=== PATIENT | female | born 1950 | race Caucasian/White ===

== ENCOUNTER → 2016-03-20 | Outpatient (CLI) | payer OTHER ==
[~2016-03-20] MED LIST: ALPR0.25 PO; ASPCH81X PO; ATEN50TA8 PO; CALC-354 PO; CHOL100027 PO; CRFL PO; MULT-916 PO; NAPR-1169 PO; NXM/40 PO; PRAV40TA2 PO; RANI300T PO; SIME80CH PO; VITAMIN B12 PO; VITAMIN E PO
[2016-03-20 17:20] LABS: URINE APPEARANCE CLEAR (CLEAR); URINE BILIRUBIN NEG (NEG); URINE COLOR YELLOW; URINE EPITHELIAL CELL AUTO 20-30 /lpf (0-5); URINE NITRITE POS (NEG); URINE PH 5.5 (4.5-7.5); URINE SPECIFIC GRAVITY 1.021 (1.000-1.030); UROBILINOGEN NEG (NEG)
[2016-03-20 17:22] LABS: MANUAL MICROSCOPIC REQUIRED? NO; REVIEW REQ? NO
== END | disposition home or self-care (01) ==
LOC: C.LABPVFM 15:51
DX: N39.0 Urinary tract infection, site not specified (principal)

== ENCOUNTER → 2016-04-05 | Outpatient (CLI) | payer OTHER ==
--- NOTE | 2016-04-05 16:30 | MAMMOGRAPHY REPORT ---
BILATERAL DIGITAL SCREENING MAMMOGRAM TOMOSYNTHESIS WITH CAD: 04/05/2016 TECHNIQUE: Breast tomosynthesis in addition to standard 2D mammography was performed. Current study was also evaluated with a Computer Aided Detection (CAD) system. COMPARISON: Comparison is made to exams dated: 04/03/2015 mammogram, 03/31/2014 mammogram, 05/06/2013 localization, 03/12/2013 mammogram, 02/24/2013 mammogram - [facility], and 07/18/2008 . BREAST COMPOSITION: There are scattered areas of fibroglandular density in both breasts. FINDINGS: There are possible faint grouped calcifications seen within the right medial breast at ap proximately 3:00, for which spot magnification views are recommended for further evaluation. The remainder of both breasts are stable compared to prior exams, without suspicious masses, calcifi cations, or areas of architectural distortion noted. There are stable post surgical changes in the right upper outer quadrant from prior lumpectomy, including coarse benign dystrophic calcifications adjacent to the lumpectomy bed. Small benign-appearing circumscribed mass in the right 9:00 breast posteriorly is stable and likely represents an intramammary lymph node. IMPRESSION: ACR BI-RADS CATEGORY 0: INCOMPLETE EVALUATION: NEED ADDITIONAL IMAGING EVALUATION Possible grouped calcifications in the right 3:00 breast, for which additional imaging evaluation is recommended. The patient will be called to schedule an appointment. Approximately 10% of breast cancers are not detected with mammography. A negative mammographic repor t should not delay biopsy if a clinically suggestive mass is present. Donna Duke M.D. ah/:04/05/2016 15:59:18 Seam Checker: Maryjane HAGEN)(Dave), [facility] letter sent: Addl Imaging 0 BI-RADS Code: ACR BI-RADS Category 0: Incomplete Evaluation: Need Additional Imaging Evaluation
== END | disposition home or self-care (01) ==
LOC: C.MAMM 13:25
PROVIDERS: ATTEND Obstetrics & Gynecology
DX: R92.2 Inconclusive mammogram (principal); Z12.31 Encounter for screening mammogram for malignant neoplasm of breast

== ENCOUNTER → 2016-05-01 | Outpatient (CLI) | payer OTHER ==
--- NOTE | 2016-05-01 15:34 | MAMMOGRAPHY REPORT ---
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 TECHNIQUE: Spot magnification right CC and ML views were obtained. COMPARISON: Comparison is made to exams dated: 04/05/2016 mammogram, 04/03/2015 mammogram, 03/31/2014 mammogram - [facility], 07/16/2007, 07/18/2008, and 02/24/2013 mammogram - [facility]. BREAST COMPOSITION: There are scattered areas of fibroglandular density in the right breast. FINDINGS: There is a 20 x 12 by approximately 15 mm cluster of very faint amorphous microcalcificat ions in the lower inner middle one third of the right breast. The microcalcifications are fainter t wright the patient's biopsy proven DCIS, but the new microcalcifications remains suspicious. Definitiv e characterization with a stereotactic guided biopsy is recommended. No other obvious microcalcific ations, new mass or unexpected architectural distortion are identified in the visualized right breas t. IMPRESSION: ACR BI-RADS CATEGORY 4B: INTERMEDIATE SUSPICION FOR MALIGNANCY 1. There is a new faint cluster of amorphous microcalcifications in the lower inner middle one thir d of the right breast, measuring up to 2 cm in maximum dimension. This is suspicious for DCIS, give n the patient's history of right breast DCIS status post breast conservation therapy, and definitive characterization with a stereotactic guided biopsy is recommended. These results and recommendations were discussed with the patient at the time of the exam. She tent atively scheduled the biopsy prior to leaving our department. Approximately 10% of breast cancers are not detected with mammography. A negative mammographic repor t should not delay biopsy if a clinically suggestive mass is present. Alayna Pierson M.D. ay/:05/01/2016 14:27:06 Management Information Systems Director: Sandie GILLESPIE(Thelma)(Dave), [facility] letter sent: Abnormal 4/5 BI-RADS Code: ACR BI-RADS Category 4B: Intermediate Suspicion For Malignancy
== END | disposition home or self-care (01) ==
LOC: C.MAMM 13:40
PROVIDERS: ATTEND Obstetrics & Gynecology
DX: R92.0 Mammographic microcalcification found on diagnostic imaging of breast (principal); Z86.000 Personal history of in-situ neoplasm of breast

== ENCOUNTER → 2016-05-10 | Outpatient (CLI) | payer OTHER ==
--- NOTE | 2016-05-10 13:18 | Discharge Instructions ---
Discharge Instructions Procedure Procedure Date: May 10, 2016. Reason for visit: Right Calcifications. Discharge Discharge Date: May 10, 2016. Discharge Diagnosis: status post breast biopsy Instructions Activity Recommendations: Additional Limitations (see below) Return to School/Work: no limitations Recommended Home Diet: No Limitations Provider Instructions: ACTIVITY RECOMMENDATIONS: * No lifting, pushing, pulling or exercising the affected side for three days. RETURN TO SCHOOL/WORK: * You may return to work/school after the procedure, but do not perform any strenuous activities for 24 to 48 hours. MEDICATIONS: * Tylenol (two 325 mg) every four to six hours if needed for mild pain (if not allergic to Tylenol). DIET: * Resume previous diet. SPECIAL CARE INSTRUCTIONS: * Keep biopsy site dry for 24 hours. May shower after 24 hours, but do not soak (bathe) incision. * May remove Tegaderm (plastic patch) tomorrow AFTER showering. * Leave the steri-strips on for one week. Allow the steri-strips to fall off by themselves. If not off after one week, you may remove them. You may place a Bandaid crosswise over the strips, if desired. * Apply ice 10 minutes on and 10 minutes off as needed. * Wear a bra at bedtime to sleep more comfortably for 2-3 days. * Your referring physician should have the results after approximately 5 to 7 business days. * Call for unusual bleeding, fever, drainage, etc or if you have any questions call during normal business hours or after hours call Dr Duke, [phone]. FOLLOW UP VISIT: Follow-up with Referring Physician as scheduled. Allergies Coded Allergies: Alcohol (Verified Allergy, Severe, AIRWAY SWELLING, 11/12/15) Doris Freeman Recommendations: Call your doctor if: * Temperature above 101 degrees * Pain not relieved by pain medicine ordered * There is increased drainage or redness from any incision * You have any unanswered questions or concerns. Your Doctors Instructions noted above were prepared by provider Donna Duke. Patient Signature Section: Patient Instructions Signature Page Giana Harman Patient (or Guardian) Signature/Date: I have read and understand the instructions given to me by my caregivers. Caregiver/RN/Doctor Signature/Date: The above-named patient and/or guardian has received patient instructions on this date. + Original Patient Signature Page (only) stays with chart. Please make copy for patient.
--- NOTE | 2016-05-13 13:48 | MAMMOGRAPHY REPORT ---
STEREOTACTIC GUIDED BIOPSY RIGHT BREAST: 05/10/2016 CLINICAL HISTORY: Indeterminate calcifications in the right lower inner quadrant. PATIENT CONSENT: The procedure, risks, benefits, and alternatives of stereotactic biopsy with clip p lacement were discussed with the patient, and verbal and written consent was obtained. A timeout wa s performed immediately prior to the procedure. PROCEDURE DESCRIPTION: With stereotactic guidance, aseptic technique, and lidocaine as a local anest hetic (1% lidocaine to anesthetize the skin and 1% lidocaine with epinephrine to anesthetize the shara per tissues), the area of concern was sampled multiple times with a 9-gauge vacuum-assisted biopsy n eedle (Letyano Eviva). The path of approach was caudocranial. The specimen radiograph demonstrates c alcifications to be present in the samples. The samples containing calcifications (labeled A) were from the samples without calcifications (labeled B). A metallic marker clip was placed at the biopsy site. This was confirmed on postprocedure mammograms. Direct pressure was applied at t he biopsy site and hemostasis was readily achieved. The patient tolerated the procedure without com plication. She was given wound care instructions. COMPARISON: Comparison is made to exams dated: 05/01/2016 mammogram, 04/05/2016 mammogram, 03/31/2014 mammogram, 04/03/2015 mammogram, 03/12/2013 mammogram, and 02/24/2013 mammogram - [facility]. IMPRESSION: STEREOTACTIC GUIDED BIOPSY Stereotactic biopsy of indeterminate calcifications in the right lower inner quadrant, with clip liz cement. The patient will receive pathology results from the referring provider. Donna Duke M.D. ah/:05/10/2016 13:29:55 Attending Technologist: Raúl Kidd RT(R)(M), [facility] Hydrometer Calibrator: Mariangel Sosa RT(R)(M), [facility]
--- NOTE | 2016-05-13 13:48 | MAMMOGRAPHY REPORT ---
UNILATERAL RIGHT DIGITAL DIAGNOSTIC MAMMOGRAM: 05/10/2016 CLINICAL HISTORY: Status post stereotactic biopsy of right lower inner quadrant calcifications. TECHNIQUE: Postprocedural right CC and ML views were obtained. COMPARISON: Comparison is made to exams dated: 05/01/2016 mammogram, 04/03/2015 mammogram, 03/31/2014 mammogram, 04/05/2016 mammogram, 03/12/2013 mammogram, and 02/24/2013 mammogram - [facility]. BREAST COMPOSITION: There are scattered areas of fibroglandular density in the right breast. FINDINGS: A new biopsy marker clip is seen at the site of the biopsied calcifications in the right lower inner quadrant. No significant postbiopsy hematoma is seen. IMPRESSION: POST PROCEDURE IMAGING FOR MARKER PLACEMENT New biopsy marker clip status post stereotactic biopsy of right lower inner quadrant calcifications. Pathology results are pending. Approximately 10% of breast cancers are not detected with mammography. A negative mammographic repor t should not delay biopsy if a clinically suggestive mass is present. Donna Duke M.D. ah/:05/10/2016 13:31:09 Attending Technologist: Raúl Kidd RT(R)(M), [facility] Lathe Setup Operator: Mariangel Sosa RT(R)(M), [facility] BI-RADS Code: Post Procedure Imaging For Marker Placement
== END | disposition home or self-care (01) ==
LOC: C.MAMM 12:25
PROVIDERS: ATTEND Obstetrics & Gynecology
DX: R92.1 Mammographic calcification found on diagnostic imaging of breast (principal)

== ENCOUNTER → 2016-06-03 | Outpatient (CLI) | payer OTHER | END | disposition home or self-care (01) | LOC: C.PAPS 09:33 | PROVIDERS: ATTEND Family Medicine | DX: Z01.419 Encounter for gynecological examination (general) (routine) without abnormal findings (principal); Z12.4 Encounter for screening for malignant neoplasm of cervix; N95.8 Other specified menopausal and perimenopausal disorders ==

== ENCOUNTER → 2016-06-13 | Outpatient (CLI) | payer OTHER ==
[2016-06-13 14:09] VITALS: BP 137/76; PULSE 77; TEMP 36.8; O2SAT 97
--- NOTE | 2016-06-13 18:34 | Radiation Oncology Follow-Up ---
Radiation Oncology Follow-Up Date of Visit Jun 13, 2016. Reason For Visit Ms. Ivory returns for her annual follow-up visit. She was last seen on 2015. Radiation Completion Date 07/21/03 History of Present Illness Ms. Ivory is a 64-year-old female who underwent bilateral digital screening mammograms. Her most recent screening mammogram was on 02/24/2013. This was compared to prior studies in 2008 and 2007. This lady study showed an asymmetry with calcifications in the right breast at the 11:00 anterior depth. Also noted was a nodule in the right breast at the 8:00 posterior depth position. Possible architectural distortion was appreciated in the left breast anterior depth superior region seen on the mediolateral oblique view only. Additional spot views were recommended with compression. These additional studies were performed on . These revealed clustered pleomorphic calcifications in the right breast at the 12:00 anterior depth. Also noted was a 9 mm oval mass with circumscribed margins in the right breast at the 6:00 posterior depth. A targeted ultrasound demonstrated a probable 9 mm cyst correlating with the mammographic findings. The architectural distortion in the left breast seen on mediolateral oblique view only was no longer seen. No ultrasound abnormality was appreciated. This study was given a BI-RAD category 4C of moderate suspicion for malignancy. An ultrasoundguided diagnostic aspiration was recommended along with stereotactic biopsy. On 03/23/2013 patient underwent an ultrasound-guided aspiration of the right breast with post digital mammographic and ultrasound imaging. The vacuum-assisted stereotactic core needle biopsy confirmed a highgrade ductal carcinoma in situ with associated microcalcifications present. The architecture was primarily solid with comedonecrosis present. Estrogen receptors were positive with 100%, strong intensity and the progesterone receptors were positive with 90% moderate intensity. The ductal carcinoma in situ measured up to 0.5 cm in greatest dimension on the glass slide. Case: [id number]. Patient was seen by Dr. Lorrie Bateman who felt the patient would be a good candidate for conservative therapy and recommended a lumpectomy. She therefore proceeded to schedule the patient for a partial mastectomy which was performed on 05/07/2013. 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 The gross area of DCIS measured 3.0 x 1.5 x 0.9 cm. 9 sections were taken from this area revealing extensive DCIS. There was evidence of comedo-type necrosis present. Microcalcifications were present. On the main lumpectomy excision no DCIS is noted at any of the specimens margin. It does to approach to within 0.2 cm of an anterior blue inked margin. Additional margin was taken and was clear. At the 6: 00 margin DCIS was noted at the final margin however. Case: [id number]. Dr. Bateman is recommended rexcision of the positive margin and proceeded with this procedure on June [id number]. The new 6:00 right breast margin showed no residual ductal carcinoma in situ seen. Additional tissue from the inferior excision revealed 2 tiny foci of residual DCIS away from inked new resection margin. Accession #: [id number]. The patient will be scheduled to see medical oncology for discussion of the role of adjuvant hormonal therapy and we were asked to see the patient in referral to discuss the role of adjuvant radiation. She underwent CT simulation and was found to be a good candidate for accelerated partial breast treatment. She completed radiation therapy 07/20/2013 received 3850 cGy utilizing accelerated partial breast treatment She did well over this past year. She denied any changes to her breast. She had noted no masses or tenderness. There have been no nipple changes or change of the axilla. She was up-to-date on mammography. She had previously seen Dr. Chris and discussed tamoxifen therapy. She was fearful of the potential side effects. She declined tamoxifen therapy. Interim History The patient underwent bilateral digital mammograms on 04/05/2016. This was compared to prior examinations. There was a possible faint grouped calcifications seen within the right medial breast at approximately 3 o'clock position. Spot magnification views were recommended for further evaluation. The remainder of both breasts were stable compared to prior examinations without suspicious masses, calcifications or areas of architectural distortion noted. There were stable postsurgical changes in the right upper outer quadrant from prior lumpectomy and accelerated partial breast irradiation. This included coarse benign dystrophic calcifications adjacent to the lumpectomy bed. A small benign-appearing circumscribed mass was seen in the right breast at the 9 o'clock position posteriorly and was stable likely representing an intramammary lymph node. Patient had a lateral right digital diagnostic magnification with a right CC and ML views. This showed a 2.0 x 1.2 x 1.5 cm cluster of very faint amorphous microcalcifications in the lower inner middle one third of the right breast. These microcalcifications were fainter that the patient's biopsy-proven DCIS. However the microcalcifications remain suspicious. Definitive characterization with stereotactic guided biopsy was recommended. The patient agreed and on 05/10/2016 she underwent a stereotactic guided biopsy of the right breast. Samples were taken both from the area of calcifications and the area away from the calcifications. Both biopsies were negative for DCIS and invasive carcinoma. Case: [id number]. Patient otherwise is doing extremely well. She denies any significant breast tenderness or soreness. She denied any arm swelling or lymphedema. Allergies Coded Allergies: Alcohol (Verified Allergy, Severe, AIRWAY SWELLING, 11/12/15) Home Medications Scheduled Alprazolam (Xanax), 0.25 MG PO BID Aspirin (Aspirin Chewable), 81 MG PO QAM Atenolol (Tenormin), 50 MG PO QAM Cholecalciferol (Vitamin D 1000 Unit), 1,000 INTER.UNIT PO DAILY Esomeprazole Magnesium (Nexium), 40 MG PO QAM Multiple Vitamins W/ Minerals (Multivitamin Adults 50+), 1 TAB PO QAM Pravastatin Sodium (Pravastatin Sodium), 40 MG PO HS Ranitidine Hcl (Zantac), 300 MG PO HS Simethicone (Gas-X), 1 TAB PO QAM Sucralfate (Carafate), 10 ML PO HS [Vitamin B12], 1 TAB PO QAM [Vitamin E], 1 TAB PO QAM Scheduled PRN Naproxen (Naprosyn), 500 MG PO BID PRN for Pain Review of Systems Gastrointestinal: Symptoms: WNL Oral: Symptoms: No Problems Respiratory: Symptoms: Dry Cough Urinary: Symptoms: WNL Breast: Right Upper Arm Measurement: 37.5 Right Mid Arm Measurement: 30.4 Right Wrist Measurement: 17.7 Left Upper Arm Measurement: 38.0 Left Mid Arm Measurement: 30.5 Left Wrist Measurement: 17.2 Arm Dominence: Right Patient Cosmetic Evaluation: Good Staff Cosmetic Evalaluation: Good Physical Exam Vital Signs Date Time Temp Pulse Resp B/P Pulse Ox O2 Delivery O2 Flow Rate FiO2 06/13/16 14:09 36.8 77 28 137/76 97 Pain: Pain Onset: 2 months Pain Duration: intermet Patient Pain Scale: 0 - 10 Initial Pain Intensity: 3.0 Pain Description: Aching General Appearance: WD/WN, no apparent distress ENT: pharynx normal Neck: supple, no adenopathy Respiratory/Chest: chest non-tender, lungs clear, normal breath sounds Breast: Examination of the left breast reveals no palpable masses no skin changes and no tenderness. No left axillary adenopathy was appreciated. Examination of the right breast reveals a healed incision in the right upper outer quadrant with some mild induration. There is a remain some minimal skin edema. There is no significant breast tenderness no significant operable masses and no right axillary adenopathy. The site of the recent biopsy is healing well. Cardiovascular: regular rate, rhythm, no murmur Abdomen: non tender, soft Extremities: normal range of motion Neurologic/Psychiatric: no motor/sensory deficits, alert, normal mood/affect, oriented x 3 Laboratory Studies Test 03/20/16 16:00 Urine Color YELLOW Urine Appearance CLEAR (CLEAR) Urine pH 5.5 (4.5-7.5) Urine Specific [place] 1.021 (1.000-1.030) Urine Protein NEG (NEG) Urine Glucose (UA) NEG (NEG) Urine Ketones TRACE (NEG) Urine Occult Blood 1+ (NEG) Urine Nitrite POS (NEG) Urine Bilirubin NEG (NEG) Urine Urobilinogen NEG (NEG) Urine Leukocyte Esterase SMALL (NEG) Urine WBC (Auto) >30 /hpf (0-5) Urine RBC (Auto) 5-10 /hpf (0-4) Urine Hyaline Casts (Auto) 5-10 /lpf (0-5) Urine Epithelial Cells (Auto) 20-30 /lpf (0-5) Urine Bacteria (Auto) 4+ (NEG) Additional Studies [facility] SURGICAL PATHOLOGY REPORT Name GIANA IVORY Case: [id number] SURGICAL PATHOLOGY REPORT Page 2 of 2 [facility] [place] [address] Tristian Felton M.D. marriage performer PATHOLOGY REPORT SURGICAL PATHOLOGY REPORT Page 1 of 1 CLINICAL HISTORY Right lower inner quadrant breast calcifications, rule out DCIS, fibrocystic change. GROSS DESCRIPTION A. SAMPLES WITH CALCIFICATIONS The specimen is received in a container labeled as right calcs with patient name Giana Ivory. The specimen consists of multiple irregular and elongated fragments of yellow, rios and reddish, soft to rubbery tissue, in all approximately 2 cc. The specimen is entirely submitted in a single cassette as A for levels. B. SAMPLES WITHOUT CALCIFICATIONS The specimen is received in a container labeled as right breast with patient name Giana Ivory. The specimen consists of multiple irregular and elongated fragments of yellow and rios, soft to rubbery tissue, in all approximately 2 cc. The specimen is entirely submitted in a single cassette as B for levels. The specimens are fixed in formalin for a total of 55 hours. SH/pi FINAL DIAGNOSIS A. BREAST, RIGHT LOWER INNER QUADRANT WITH CALCIFICATION, STEREOTACTIC-GUIDED BIOPSIES: 1. FIBROCYSTIC CHANGE WITH ASSOCIATED MICROCALCIFICATION. 2. NEGATIVE FOR DCIS AND INVASIVE CARCINOMA. B. BREAST, LOWER INNER QUADRANT WITHOUT CALCIFICATIONS, STEREOTACTIC-GUIDED BIOPSIES: 1. FIBROCYSTIC CHANGE. 2. NEGATIVE FOR DCIS AND INVASIVE CARCINOMA. Assessment & Plan This patient continues to do well. She will continue to be followed by her referring physicians. We would like to see her in follow-up in one year's time. She is scheduled for her annual mammogram. Total Time In Follow-Up I spent 15 minutes in examination and discussion with this patient and 10 minutes reviewing her chart and preparation of this document. Copy To Marquez Su M.D.; Tanika Roach M.D.(HIDE INSPECTOR AND SORTER/OB)
== END | disposition home or self-care (01) ==
LOC: C.ONC 13:55
PROVIDERS: ATTEND Physician Assistant Medical
DX: Z08 Encounter for follow-up examination after completed treatment for malignant neoplasm (principal); Z92.3 Personal history of irradiation; Z85.3 Personal history of malignant neoplasm of breast

== ENCOUNTER → 2016-06-15 | Outpatient (CLI) | payer OTHER ==
[~2016-06-15] MED LIST changes: -CALC-354 PO
[2016-06-15 13:14] LABS: BLOOD UREA NITROGEN 12 mg/dl (7-18); BUN/CREATININE RATIO 16.3 (10-20); CALCIUM 9.1 mg/dl (8.5-10.1); CARBON DIOXIDE 30 mmol/L (21-32); CHLORIDE 104 mmol/L (98-107); CREATININE 0.76 mg/dl (0.60-1.20); GLUCOSE 103 mg/dl (70-99); SODIUM 139 mmol/L (136-145)
[2016-06-15 13:17] LABS: CHOLESTEROL 176 mg/dl (0-200); CHOLESTEROL/HDL RATIO 3.4; HDL CHOLESTEROL 52 mg/dl; LDL CHOLESTEROL CALCULATED 85 mg/dl; TRIGLYCERIDES 196 mg/dl (0-150); VERY LOW DENSITY LIPOPROT CALC 39 mg/dl
== END | disposition home or self-care (01) ==
LOC: C.LABPVFM 09:03
PROVIDERS: ATTEND Family Medicine
DX: Z11.59 Encounter for screening for other viral diseases (principal); Z13.220 Encounter for screening for lipoid disorders; Z13.1 Encounter for screening for diabetes mellitus

== ENCOUNTER → 2016-09-14 | Outpatient (CLI) | payer OTHER | END | disposition home or self-care (01) | LOC: C.LABPVFM 15:04 | PROVIDERS: ATTEND Family Medicine | DX: R39.9 Unspecified symptoms and signs involving the genitourinary system (principal) ==

== ENCOUNTER → 2016-12-24 | Outpatient (CLI) | payer OTHER ==
[2016-12-24 13:34] LABS: ESTIMATED AVERAGE GLUCOSE 120 mg/dl; HA1C FLAG Normal (Normal)
[2016-12-24 14:03] LABS: ALB/GLOB RATIO 0.8 (0.9-2); ALKALINE PHOSPHATASE 60 U/L (45-117); ALT/SGPT 34 U/L (12-78); AST/SGOT 30 U/L (15-37); BLOOD UREA NITROGEN 17 mg/dl (7-18); BUN/CREATININE RATIO 20.6 (10-20); CALCIUM 9.1 mg/dl (8.5-10.1); CARBON DIOXIDE 30 mmol/L (21-32); CHLORIDE 104 mmol/L (98-107); CHOLESTEROL 161 mg/dl (0-200); CHOLESTEROL/HDL RATIO 3.7; GLUCOSE 103 mg/dl (70-99); HDL CHOLESTEROL 43 mg/dl; LDL CHOLESTEROL CALCULATED 74 mg/dl; POTASSIUM 3.9 mmol/L (3.5-5.1); SODIUM 139 mmol/L (136-145); TRIGLYCERIDES 218 mg/dl (0-150); VERY LOW DENSITY LIPOPROT CALC 44 mg/dl
== END | disposition home or self-care (01) ==
LOC: C.LABPVFM 08:10
PROVIDERS: ATTEND Family Medicine
DX: R73.01 Impaired fasting glucose (principal); I10 Essential (primary) hypertension; K21.0 Gastro-esophageal reflux disease with esophagitis; E78.5 Hyperlipidemia, unspecified

== ENCOUNTER → 2017-02-04 | Outpatient (CLI) | payer OTHER | END | disposition home or self-care (01) | LOC: C.LABPVFM 12:51 | PROVIDERS: ATTEND Family Medicine | DX: J02.9 Acute pharyngitis, unspecified (principal) ==

== ENCOUNTER → 2017-04-07 | Outpatient (CLI) | payer OTHER ==
--- NOTE | 2017-04-08 14:40 | MAMMOGRAPHY REPORT ---
BILATERAL DIGITAL SCREENING MAMMOGRAM TOMOSYNTHESIS WITH CAD: 04/07/2017 CLINICAL HISTORY: Asymptomatic. Personal history of breast cancer. TECHNIQUE: Breast tomosynthesis in addition to standard 2D mammography was performed. Current study was also evaluated with a Computer Aided Detection (CAD) system. COMPARISON: Comparison is made to exams dated: 05/10/2016 mammogram, 04/05/2016 mammogram, 04/03/2015 ma mmogram, 03/31/2014 mammogram, 05/06/2013 specimen - [facility], and 07/18/2008. BREAST COMPOSITION: There are scattered areas of fibroglandular density in both breasts. FINDINGS: No suspicious masses, calcifications, or areas of architectural distortion are noted in ei ther breast. There has been no significant interval change compared to prior exams. There are stable postsurgical changes in the right upper outer quadrant from prior lumpectomy, including stable densi ty and architectural distortion at the surgical bed. Coarse dystrophic calcifications in the region of the surgical bed are again noted. A biopsy marker clip is again noted within the right lower inne r quadrant from prior benign stereotactic biopsy. Small nodular asymmetry in the right medial marble installation helper ior breast on the CC view is stable. Fluctuating circumscribed benign-appearing 11 mm mass within th e right 9:00 posterior breast appears similar to the 2013 exam. IMPRESSION: ACR BI-RADS CATEGORY 2: BENIGN There is no mammographic evidence of malignancy. A 1 year screening mammogram is recommended. The pa tient will receive written notification of the results. Approximately 10% of breast cancers are not detected with mammography. A negative mammographic report should not delay biopsy if a clinically suggestive mass is present. Donna Duke M.D. ah/:04/07/2017 16:12:11 Stain Dipper: Maryjane GILLESPIE(Thelma)(M), [facility] letter sent: Normal 03/11 BI-RADS Code: ACR BI-RADS Category 2: Benign
== END | disposition home or self-care (01) ==
LOC: C.MAMM 13:31
PROVIDERS: ATTEND Obstetrics & Gynecology
DX: Z12.31 Encounter for screening mammogram for malignant neoplasm of breast (principal)

== ENCOUNTER → 2017-06-12 | Outpatient (CLI) | payer OTHER ==
[2016-06-13 14:09] VITALS: BP 137/76; PULSE 77
[~2017-06-12] MED LIST changes: +[UNRECOGNIZED DRUG - CODE] PO
[2017-06-12 13:09] VITALS: BP 142/83; PULSE 84; TEMP 36.9; O2SAT 97
--- NOTE | 2017-06-12 14:10 | Radiation Oncology Follow-Up ---
Radiation Oncology Follow-Up Date of Visit Jun 12, 2017. Reason For Visit Annual follow-up Radiation Completion Date APBI 07/20/13 Diagnosis (1) Intraductal carcinoma in situ of right breast Status: Resolved Onset Date: 03/23/2013 Stage: 0 Permanent Comment: Abnormal right breast mammogram Status post ultrasound-guided aspiration 03/23/2013 revealing high-grade DCIS Estrogen receptor positive and progesterone receptor positive Reexcision due to positive margin 05/31/2013. No residual DCIS Status post completion of radiation therapy utilizing accelerated partial breast treatment completed 07/20/2013 received 3850 cGy Patient declined tamoxifen therapy Last Edited By: Niurka Espinoza on May 17, 2015 13:42 History of Present Illness Ms. Ivory underwent bilateral digital screening mammograms. Her most recent screening mammogram was on 02/24/2013. This was compared to prior studies in 2008 and 2007. This lady study showed an asymmetry with calcifications in the right breast at the 11:00 anterior depth. Also noted was a nodule in the right breast at the 8:00 posterior depth position. Possible architectural distortion was appreciated in the left breast anterior depth superior region seen on the mediolateral oblique view only. Additional spot views were recommended with compression. These additional studies were performed on . These revealed clustered pleomorphic calcifications in the right breast at the 12:00 anterior depth. Also noted was a 9 mm oval mass with circumscribed margins in the right breast at the 6:00 posterior depth. A targeted ultrasound demonstrated a probable 9 mm cyst correlating with the mammographic findings. The architectural distortion in the left breast seen on mediolateral oblique view only was no longer seen. No ultrasound abnormality was appreciated. This study was given a BI-RAD category 4C of moderate suspicion for malignancy. An ultrasoundguided diagnostic aspiration was recommended along with stereotactic biopsy. On 03/23/2013 patient underwent an ultrasound-guided aspiration of the right breast with post digital mammographic and ultrasound imaging. The vacuum-assisted stereotactic core needle biopsy confirmed a highgrade ductal carcinoma in situ with associated microcalcifications present. The architecture was primarily solid with comedonecrosis present. Estrogen receptors were positive with 100%, strong intensity and the progesterone receptors were positive with 90% moderate intensity. The ductal carcinoma in situ measured up to 0.5 cm in greatest dimension on the glass slide. Case: [id number]. Patient was seen by Dr. Lorrie Bateman who felt the patient would be a good candidate for conservative therapy and recommended a lumpectomy. She therefore proceeded to schedule the patient for a partial mastectomy which was performed on 05/07/2013. 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 The gross area of DCIS measured 3.0 x 1.5 x 0.9 cm. 9 sections were taken from this area revealing extensive DCIS. There was evidence of comedo-type necrosis present. Microcalcifications were present. On the main lumpectomy excision no DCIS is noted at any of the specimens margin. It does to approach to within 0.2 cm of an anterior blue inked margin. Additional margin was taken and was clear. At the 6: 00 margin DCIS was noted at the final margin however. Case: [id number]. Dr. Bateman is recommended rexcision of the positive margin and proceeded with this procedure on June [id number]. The new 6:00 right breast margin showed no residual ductal carcinoma in situ seen. Additional tissue from the inferior excision revealed 2 tiny foci of residual DCIS away from inked new resection margin. Accession #: [id number]. The patient will be scheduled to see medical oncology for discussion of the role of adjuvant hormonal therapy and we were asked to see the patient in referral to discuss the role of adjuvant radiation. She underwent CT simulation and was found to be a good candidate for accelerated partial breast treatment. She completed radiation therapy 07/20/2013 received 3850 cGy utilizing accelerated partial breast treatment She did well over this past year. She denied any changes to her breast. She had noted no masses or tenderness. There have been no nipple changes or change of the axilla. She was up-to-date on mammography. She had previously seen Dr. Chris and discussed tamoxifen therapy. She was fearful of the potential side effects. She declined tamoxifen therapy. The patient underwent bilateral digital mammograms on 04/05/2016. This was compared to prior examinations. There was a possible faint grouped calcifications seen within the right medial breast at approximately 3 o'clock position. Spot magnification views were recommended for further evaluation. The remainder of both breasts were stable compared to prior examinations without suspicious masses, calcifications or areas of architectural distortion noted. There were stable postsurgical changes in the right upper outer quadrant from prior lumpectomy and accelerated partial breast irradiation. This included coarse benign dystrophic calcifications adjacent to the lumpectomy bed. A small benign-appearing circumscribed mass was seen in the right breast at the 9 o'clock position posteriorly and was stable likely representing an intramammary lymph node. Patient had a lateral right digital diagnostic magnification with a right CC and ML views. This showed a 2.0 x 1.2 x 1.5 cm cluster of very faint amorphous microcalcifications in the lower inner middle one third of the right breast. These microcalcifications were fainter that the patient's biopsy-proven DCIS. However the microcalcifications remain suspicious. Definitive characterization with stereotactic guided biopsy was recommended. The patient agreed and on 05/10/2016 she underwent a stereotactic guided biopsy of the right breast. Samples were taken both from the area of calcifications and the area away from the calcifications. Both biopsies were negative for DCIS and invasive carcinoma. Case: [id number]. Interim History She has been doing well over this past year. She denies any changes to her breast. She has noted no masses or tenderness and no change of the axilla. She is up-to-date on mammography. She has continued her regular follow-up with her primary care provider and battery test engineer. Allergies Coded Allergies: Alcohol (Verified Allergy, Severe, AIRWAY SWELLING, 11/12/15) Home Medications Scheduled Alprazolam (Xanax), 0.25 MG PO BID Aspirin (Aspirin Chewable), 81 MG PO QAM Atenolol (Tenormin), 50 MG PO QAM Cholecalciferol (Vitamin D 1000 Unit), 1,000 INTER.UNIT PO DAILY Coenzyme Q10 (Ubidecarenone) (Coq10 Gummies Adult), 100 MG PO DAILY Esomeprazole Magnesium (Nexium), 40 MG PO QAM Multiple Vitamins W/ Minerals (Multivitamin Adults 50+), 1 TAB PO QAM Pravastatin Sodium (Pravastatin Sodium), 40 MG PO HS Ranitidine Hcl (Zantac), 300 MG PO HS Sucralfate (Carafate), 10 ML PO HS [Vitamin B12], 1 TAB PO QAM [Vitamin E], 1 TAB PO QAM Scheduled PRN Naproxen (Naprosyn), 500 MG PO BID PRN for Pain Review of Systems Gastrointestinal: Symptoms: WNL Oral: Symptoms: No Problems Respiratory: Symptoms: WNL Urinary: Symptoms: WNL Skin: Symptoms: No Problems Breast: Right Upper Arm Measurement: 40.0 Right Mid Arm Measurement: 30.5 Right Wrist Measurement: 18.0 Left Upper Arm Measurement: 40.5 Left Mid Arm Measurement: 31.5 Left Wrist Measurement: 19.0 Arm Dominence: Right Patient Cosmetic Evaluation: Good Staff Cosmetic Evalaluation: Good Physical Exam Vital Signs Date Time Temp Pulse Resp B/P (MAP) Pulse Ox O2 Delivery O2 Flow Rate FiO2 06/12/17 13:09 36.9 84 16 142/83 97 Fatigue: None General Appearance: no apparent distress Eyes: normal inspection, EOMI ENT: normal ENT inspection, hearing grossly normal Neck: no adenopathy, thyroid normal Respiratory/Chest: lungs clear, no respiratory distress, no accessory muscle use Breast: Breast examination reveals well-healed incision of the right breast. There are no masses or tenderness and no axillary adenopathy. She has no skin retractions or nipple changes. She has some mild fibrous changes in the area of her incision. Using the Jackson score cosmesis she has a good outcome. The left breast showed no masses or tenderness and no axillary adenopathy. Cardiovascular: regular rate, rhythm, no gallop, no murmur Extremities: no pedal edema Neurologic/Psychiatric: no motor/sensory deficits, alert, normal mood/affect Skin: warm/dry Pain Management Patient Reports Pain: Yes Pain Location: Patient Preferred Pain Scale: 0 - 10 Initial Pain Intensity: 0.0 Pain Management Plan She denies pain therefore requires no pain management. Laboratory Laboratory Results: not applicable Pathology Pathology Results: not applicable Imaging Imaging Studies: were reviewed, and pertinent findings noted below Imaging Comments Patient: JONO IVORY [facility] Rec: [id number] Address1: [address] [place] [address] Address2: [place] [address] Acct ID: [id number] Date: 1950 Sex: F Ref Phy: Tanika Roach M.D.(HAND SEWER/OB) Att Phy: Tanika Roach M.D.(HAND SEWER/OB) Evelyn Phy: Leno Ching M.D. Inter Phy: Donna Duke MD [facility] Zip: [place] [address] SC: [id number] Report #: [id number] Crystal Growing Technician: VIKAS Diagnosis: ASYMPTOMATIC Service Date: 04/07/17 MNE: [id number] Ordering Dr: Tanika Roach M.D. CC: Tanika Roach M.D.(HAND SEWER/OB) CONF: DICTATED BY: Donna Duke MD MAMMOGRAPHY REPORT BILATERAL DIGITAL SCREENING MAMMOGRAM TOMOSYNTHESIS WITH CAD: 04/07/2017 CLINICAL HISTORY: Asymptomatic. Personal history of breast cancer. TECHNIQUE: Breast tomosynthesis in addition to standard 2D mammography was performed. Current study was also evaluated with a Computer Aided Detection (CAD ) system. COMPARISON: Comparison is made to exams dated: 05/10/2016 mammogram, 04/05/2016 mammogram, 04/03/2015 mammogram, 03/31/2014 mammogram, 05/06/2013 specimen - [facility], and 07/18/2008. BREAST COMPOSITION: There are scattered areas of fibroglandular density in both breasts. FINDINGS: No suspicious masses, calcifications, or areas of architectural distortion are noted in either breast. There has been no significant interval change compared to prior exams. There are stable postsurgical changes in the right upper outer quadrant from prior lumpectomy, including stable density and architectural distortion at the surgical bed. Coarse dystrophic calcifications in the region of the surgical bed are again noted. A biopsy marker clip is again noted within the right lower inner quadrant from prior benign stereotactic biopsy. Small nodular asymmetry in the right medial posterior breast on the CC view is stable. Fluctuating circumscribed benign-appearing 11 mm mass within the right 9:00 posterior breast appears similar to the 2013 exam. IMPRESSION: ACR BI-RADS CATEGORY 2: BENIGN There is no mammographic evidence of malignancy. A 1 year screening mammogram is recommended. The patient will receive written notification of the results. Approximately 10% of breast cancers are not detected with mammography. A negative mammographic report should not delay biopsy if a clinically suggestive mass is present. Donna Duke M.D. /:04/07/2017 16:12:11 Reconciliation Manager: Maryjane GILLESPIE(Thelma)(M), [facility] letter sent: Normal 1/2 BI-RADS Code: ACR BI-RADS Category 2: Benign Dictated by: Donna Duke MD Signed by: Donna Duke MD Assessment & Plan Plan: Continue with scheduled mammography. Continue regular follow-up with her primary care physician and battery test engineer. We asked her to return to our office in 1 year. She may call if she has any questions or concerns in the interim. Total Time In Follow-Up I spent 20 minutes speaking to the patient in performing examination. I spent 15 minutes reviewing information and completing this note. AK Copy To Leno Ching M.D.
== END | disposition home or self-care (01) ==
LOC: C.ONC 12:58
PROVIDERS: ATTEND Physician Assistant Medical
DX: Z08 Encounter for follow-up examination after completed treatment for malignant neoplasm (principal); Z92.3 Personal history of irradiation; Z85.3 Personal history of malignant neoplasm of breast

== ENCOUNTER → 2017-06-25 | Outpatient (CLI) | payer OTHER ==
[~2017-06-25] MED LIST changes: -SIME80CH PO
[2017-06-25 13:27] LABS: ALBUMIN 3.6 gm/dl (3.4-5.0); ALT/SGPT 37 U/L (12-78); AST/SGOT 27 U/L (15-37); BLOOD UREA NITROGEN 15 mg/dl (7-18); CALCIUM 9.4 mg/dl (8.5-10.1); CARBON DIOXIDE 29 mmol/L (21-32); CREATININE 0.98 mg/dl (0.60-1.20); GLUCOSE 106 mg/dl (70-99); POTASSIUM 3.8 mmol/L (3.5-5.1); SODIUM 136 mmol/L (136-145)
[2017-06-25 13:30] LABS: ALKALINE PHOSPHATASE 69 U/L (45-117); CHOLESTEROL 168 mg/dl (0-200); LDL CHOLESTEROL CALCULATED 87 mg/dl; TOTAL PROTEIN 8.2 gm/dl (6.4-8.2)
== END | disposition home or self-care (01) ==
LOC: C.LABPVFM 09:24
PROVIDERS: ATTEND Family Medicine
DX: F41.9 Anxiety disorder, unspecified (principal); I10 Essential (primary) hypertension; K21.0 Gastro-esophageal reflux disease with esophagitis; E78.5 Hyperlipidemia, unspecified

== ENCOUNTER → 2017-10-07 | Outpatient (CLI) | payer OTHER ==
[~2017-10-07] MED LIST changes: -NAPR-1169 PO; +NAPR-22 PO
--- NOTE | 2017-10-07 13:50 | DIAGNOSTIC IMAGING REPORT ---
ABDOMEN 2VIEW W/PA CHEST RTN CLINICAL HISTORY: ABDOMINAL TENDERNESS, LEFT UPPER QUADRANT, FLANK PAIN pain COMPARISON STUDY: No previous studies for comparison. FINDINGS: The soft tissues, psoas shadows, renal outlines and intestinal gas pattern appear normal. There is no evidence for bowel obstruction. There is no evidence for free intraperitoneal air. No abnormal abdominal calcifications are seen. A frontal view of the chest was performed and is unremarkable. IMPRESSION: Normal study. The above report was generated using voice recognition software. It may contain grammatical, syntax or spelling errors. Electronically signed by: Jair Diop M.D. 10/07/2017 1:49 PM Dictated Date/Time: 10/07/2017 1:48 PM
== END | disposition home or self-care (01) ==
LOC: C.RAD 13:08
PROVIDERS: ATTEND Family Medicine
DX: R10.812 Left upper quadrant abdominal tenderness (principal); R10.9 Unspecified abdominal pain

== ENCOUNTER 2019-09-24 08:35 | Inpatient (IN) ==
--- NOTE | 2019-09-09 12:27 | PAT Medication Instructions ---
Medication Instructions Date of Service September 09, 2019 Home Medications Medication Instructions Recorded atenolol 50 mg tablet 50 mg PO QAM #90 tab 04/12/19 pravastatin 40 mg tablet 40 mg PO HS #90 tab 04/12/19 promethazine 25 mg tablet 25 mg PO TID PRN #10 tab 05/04/19 meclizine 25 mg tablet 25 mg PO Q6H PRN #30 tab 06/10/19 alprazolam 0.25 mg tablet 0.25 mg PO BID PRN #60 tab 09/08/19 Centrum Silver Women 1 tab PO QAM aspirin 81 mg PO QAM coenzyme Q10 200 mg capsule 200 mg PO QAM Gaviscon Extra Strength 10 ml PO QID PRN acetaminophen 500 mg PO Q6H PRN ascorbic acid (vitamin C) [Vitamin C] 500 mg PO QAM cholecalciferol (vitamin D3) [Vitamin D3] 1,000 unit PO QAM atenolol 50 mg tablet 50 mg PO QAM pravastatin 40 mg tablet 40 mg PO HS esomeprazole magnesium [Nexium] 40 mg PO QAM promethazine 25 mg tablet 25 mg PO TID PRN meclizine 25 mg tablet 25 mg PO Q6H PRN alprazolam 0.25 mg tablet 0.25 mg PO BID PRN cyclobenzaprine 5 mg PO DAILY PRN famotidine [Pepcid] 20 mg PO HS magnesium 500 mg PO DAILY vitamin B complex 1 cap PO DAILY ASK your prescriber and surgeon aspirin 81 mg PO QAM STOP taking 2 weeks before surgery (or as soon as possible if surgery is within 2 weeks) coenzyme Q10 200 mg capsule 200 mg PO QAM DO NOT take the morning of surgery Centrum Silver Women 1 tab PO QAM Gaviscon Extra Strength 10 ml PO QID PRN ascorbic acid (vitamin C) [Vitamin C] 500 mg PO QAM cholecalciferol (vitamin D3) [Vitamin D3] 1,000 unit PO QAM cyclobenzaprine 5 mg PO DAILY PRN magnesium 500 mg PO DAILY vitamin B complex 1 cap PO DAILY Take morning of surgery With a small sip of water, OTHERWISE NOTHING TO EAT OR DRINK AFTER MIDNIGHT: acetaminophen 500 mg PO Q6H PRN (okay to take up to 4 hours prior to surgery if needed) atenolol 50 mg tablet 50 mg PO QAM esomeprazole magnesium [Nexium] 40 mg PO QAM promethazine 25 mg tablet 25 mg PO TID PRN (if needed) meclizine 25 mg tablet 25 mg PO Q6H PRN (if needed) alprazolam 0.25 mg tablet 0.25 mg PO BID PRN (if needed) Take evening before surgery Gaviscon Extra Strength 10 ml PO QID PRN (if needed) acetaminophen 500 mg PO Q6H PRN (if needed) pravastatin 40 mg tablet 40 mg PO HS promethazine 25 mg tablet 25 mg PO TID PRN (if needed) meclizine 25 mg tablet 25 mg PO Q6H PRN (if needed) alprazolam 0.25 mg tablet 0.25 mg PO BID PRN (if needed) cyclobenzaprine 5 mg PO DAILY PRN (if needed) famotidine [Pepcid] 20 mg PO HS Other Notes If you have any questions please call us at [phone] or [phone] or [phone] or [phone]
--- NOTE | 2019-09-10 14:39 | Anesthesiology Consultation ---
Date of Service September 10, 2019 Assessment & Plan (1) Encounter for pre-operative examination: COVID Status: As of 09/07 assessment, patient denies travel to endemic area, known exposure/sick contacts, or symptoms of COVID19. Patient instructed to follow strict social distancing guidelines, wear a mask in public and avoid travel for 14 days prior to surgery. Preoperative COVID19 testing to be completed prior to surgery. Patient made aware to self-isolate as much as possible between COVID testing and surgery. Chart Review Chart Review: Acceptable Risk for Surgery and Patient seen in Pre Admission Testing Teaching & Discussion Instructed NPO after midnight before surgery, except medications with 15 cc of water. Medication instructions provided according to the PAT guidelines. History Surgery Operation Date: 09/24/19 09:30 Proposed Procedures p Robotic Total Laparoscopic Hysterectomy - Tanika Roach MD, FACOG Height/Weight Height: 5 ft 3.5 in Weight: 112.5 kg Allergies Allergy/AdvReac Type Severity Reaction Status Date / Time alcohol Allergy Severe DRINKING Verified 09/10/19 13:37 ALCOHOL - AIRWAY SWELLING - SEE NOTES Medications Home Medications Medication Instructions Recorded Confirmed Last Taken Centrum Silver Women 1 tab PO QAM 02/11/18 09/10/19 04/28/19 aspirin 81 mg PO QAM 02/11/18 09/10/19 04/28/19 coenzyme Q10 200 mg capsule 200 mg PO QAM 10/01/18 09/10/19 04/28/19 Gaviscon Extra Strength 10 ml PO QID PRN 12/31/18 09/10/19 01/17/19 20:00 acetaminophen 500 mg PO Q6H PRN 12/31/18 09/10/19 Unknown ascorbic acid (vitamin C) [Vitamin 500 mg PO QAM 12/31/18 09/10/19 04/28/19 C] cholecalciferol (vitamin D3) 1,000 unit PO QAM 12/31/18 09/10/19 04/28/19 [Vitamin D3] atenolol 50 mg tablet 50 mg PO QAM #90 tab 04/12/19 09/10/19 04/28/19 pravastatin 40 mg tablet 40 mg PO HS #90 tab 04/12/19 09/10/19 04/28/19 esomeprazole magnesium [Nexium] 40 mg PO QAM 0209/10/19 04/28/19 promethazine 25 mg tablet 25 mg PO TID PRN #10 tab 05/04/19 09/10/19 Unknown meclizine 25 mg tablet 25 mg PO Q6H PRN #30 tab 06/10/19 09/10/19 Unknown alprazolam 0.25 mg tablet 0.25 mg PO BID PRN #60 tab 09/08/19 09/10/19 Unknown cyclobenzaprine 5 mg PO DAILY PRN 09/08/19 09/10/19 Unknown famotidine [Pepcid] 20 mg PO HS 09/08/19 09/10/19 Unknown magnesium 500 mg PO DAILY 09/08/19 09/10/19 Unknown vitamin B complex 1 cap PO DAILY 09/08/19 09/10/19 Unknown Past Medical History Medical History (Updated 09/13/19 @ 08:22 by Keyur Lazo) Anxiety Arthritis Enlarged uterus Fatigue Frequent headaches GERD (gastroesophageal reflux disease) On multiple maintenance meds, still some reflux with "the wrong food" Hiatal hernia High cholesterol HTN (hypertension) Hx of breast cancer right (2014) HX OF right breast lumpectomy/XRT-- RUE limb restriction - PT DENIES CURRENT LIMB RESTRICTION - REPORTS WAS TOLD AT FIRST TO RESTRICT ARM, NOW NO LONGER NEEDED Hx of colonic polyps Hyperlipidemia Intraductal carcinoma in situ of right breast (03/23/13) "Abnormal right breast mammogram Status post ultrasound-guided aspiration 03/23/2013 revealing high-grade DCIS Estrogen receptor positive and progesterone receptor positive Reexcision due to positive margin 05/31/2013. No residual DCIS Status post completion of radiation therapy utilizing accelerated partial breast treatment completed 07/20/2013 received 3850 cGy Patient declined tamoxifen therapy" Morbid obesity Neck problem DDD, was told she was a candidate for surgical intervention but declined. DENIES LIMITED ROM Osteoarthritis Slow to wake up after anesthesia HAPPENS OCCASIONALLY Sweating profusely Vertigo Exercise / Class Metabolic Activity II 4-5 Yardwork/Stairs/Walk up hill (Denies CP or SOB with 1 FOS, limited by k nee pain) Past Family History Family History Mother Diabetes Colorectal cancer Father Diabetes Sister Myocardial infarction Family/Other Breast cancer Self Other Patient's mother is Denies family history of Ovarian cancer Prostate cancer Uterine cancer Past Surgical History Surgical History History of section x2 History of cholecystectomy History of dilatation and curettage x3 History of esophagogastroduodenoscopy (EGD) History of hysteroscopy with resection for intrauterine polyp removal History of lumpectomy of right breast x2 History of right breast biopsy x2 History of tooth extraction all teeth removed Hx of colonoscopy with polypectomy Past Anesthesia History No Family Hx of Anesthesia Complications Pt reports slow to wake after surgeries but denies reintubation or transfer to higher level of care/unplanned admission. History of PONV No Hx of PONV and Hx of Motion Sickness Social History Smoking Status: Never smoker Do You Dip or Chew Tobacco: No Hx Alcohol Use: No (PT ALLERGIC) Hx Substance Use: No substance use type: does not use Review of Systems Pt denies any recent chest pain, shortness of breath, palpitations, cough, fever or URI. Physical Exam Vital Signs BP: 124/75 P: 74bpm SPO2: 96% RA T: 98.5 F R: 18 Constitutional + morbidly obese ENMT Mouth: + dentures and + edentulous Thyromental Distance: > or= 3.5 Finger Breadths (4) Mallampati Class: II Crowded, narrow airway. Neck + thick neck (very); neck extension not limited Respiratory normal respiratory effort Auscultation: lungs clear to auscultation bilaterally Cardiovascular Rate/Rhythm: regular rate and regular rhythm Heart Sounds: no murmur Extremities: no edema Testing Laboratory Results 09/10/19 15:14 09/10/19 15:14 Blood Type A Positive 09/10/19 15:14 Antibody Screen NEGATIVE 09/10/19 15:14 Electrocardiogram Date: 05/03/19 Findings: + NSR @ (73bpm) Chest X-Ray Date: 04/29/19 Cardiac silhouette enlarged as on prior. Persistent minimal bandlike opacity in the left midlung. This is likely scarring. No new focal opacity. No large effusion or pneumothorax. Scoliosis and multilevel degenerative changes of the thoracic spine. Upper abdomen normal. IMPRESSION: 1. Cardiomegaly. No other convincing evidence of acute cardiopulmonary disease.
[2019-09-10 15:58] LABS: Basophils # (auto) 0.02 K/uL (0-0.2); Basophils % (auto) 0.3 %; Eosinophils # (auto) 0.09 K/uL (0-0.5); Eosinophils % (auto) 1.2 %; Hematocrit (blood only) 45.5 % (37-47); Hemoglobin 14.7 g/dL (12.0-16.0); Immature Granulocytes # (auto) 0.01 K/uL (0.00-0.02); Immature Granulocytes % (auto) 0.1 %; Lymphocytes # (auto) 2.82 K/uL (1.2-3.4); Lymphocytes % (auto) 39.1 %; Mean Corpuscular Hemoglobin 30.3 pg (25-34); Mean Corpuscular Hgb Conc 32.3 g/dL (32-36); Mean Corpuscular Volume 93.8 fL (80-100); Mean Platelet Volume 9.9 fL (7.4-10.4); Monocytes # (auto) 0.65 K/uL (0.11-0.59); Neutrophils # (auto) 3.62 K/uL (1.4-6.5); Neutrophils % (auto) 50.3 %; Platelet Count 272 K/uL (130-400); RDW Coefficient of Variation 14.2 % (11.5-14.5); RDW Standard Deviation 48.6 fL (36.4-46.3); Red Blood Count 4.85 M/uL (4.2-5.4); White Blood Count 7.21 K/uL (4.8-10.8)
[2019-09-10 16:16] LABS: BUN Creatinine Ratio 18.6 (10-20); Calcium 9.1 mg/dl (8.5-10.1); Creatinine Clr Calc Pharmacy 74.9 ml/min; Est GFR (African American) 77.2; Est GFR (Non-African American) 66.6
[~2019-09-24 08:35] MED LIST changes: -ALPR0.25 PO; -ASPCH81X PO; -ATEN50TA8 PO; +CEFAZOLIN 3000MG 72.5 ML IV SCH; -CHOL100027 PO; -CRFL PO; +LR 15ML/HR IV SCH; -MULT-916 PO; -NAPR-22 PO; -NXM/40 PO; +PHENAZOPYRIDINE HCL 200 MG TAB PO SCH; -PRAV40TA2 PO; -RANI300T PO; -VITAMIN B12 PO; -VITAMIN E PO; -[UNRECOGNIZED DRUG - CODE] PO
[2019-09-24] MEDS ORDERED: GLYCOPYRROLATE 0.2 MG/ML VIAL ONE (09:40)
[2019-09-24] MEDS ORDERED: NEOSTIGMINE METHYLSULFATE 5 MG/5 ML SYR ONE (09:40)
[2019-09-24] MEDS ORDERED: MIDAZOLAM HCL 1 MG/ML 2ML VIAL ONE ×2 (09:40→13:04)
[2019-09-24] MEDS ORDERED: fentaNYL citrate 100 MCG/2 ML VIAL ONE ×5 (09:40→15:02)
[2019-09-24] MEDS ORDERED: PROPOFOL IV EMULSION 10 MG/ML 20 ML VIAL IV ONE (09:40)
[2019-09-24] MEDS ORDERED: ONDANSETRON INJ 2 MG/ML 2 ML VIAL ONE (09:40)
[2019-09-24] MEDS ORDERED: LIDOCAINE HCL 2% 2 ML VIAL/AMP(20MG/ML) INFIL ONE (09:40)
[2019-09-24] MEDS ORDERED: DEXAMETHASONE SOD INJ 4 MG/ML VIAL ONE (09:40)
--- NOTE | 2019-09-24 09:52 | History & Physical Bridge Note ---
Date of Service September 24, 2019 History & Physical Bridge Note I have examined the patient, reviewed the History & Physical and in the interval since the performance of the History & Physical I have noted the following changes of clinical significance: no changes noted. aware we will plan SQ heparin adoption agent to OR.
[2019-09-24] MEDS ORDERED: BUPIVACAINE 0.5 % 5 MG/1 ML MPF 30ML VIAL ONE ×2 (10:34→13:50)
[2019-09-24] MEDS: HEPARIN SOD 5,000 UNIT/0.5 ML VIAL SQ ONE ×2 (10:36→13:26)
[2019-09-24] MEDS ORDERED: SURGICEL ABSORB HEMOSTAT 2IN X 14IN TOP ONE (16:24)
[2019-09-24] MEDS ORDERED: OXYCODONE/ACETAMINOPHEN 5mg/325mg TAB PO PRN (17:13)
[2019-09-24] MEDS ORDERED: PROMETHAZINE HCL 25 MG in SODIUM CHLORIDE 0.9% 50 ML IV PRN (17:13)
[2019-09-24] MEDS ORDERED: ONDANSETRON INJ 2 MG/ML 2 ML VIAL IV PRN ×2 (17:13→18:21)
[2019-09-24] MEDS ORDERED: PROMETHAZINE HCL 12.5 MG in SODIUM CHLORIDE 0.9% 50 ML IV PRN (17:13)
[2019-09-24] MEDS ORDERED: IBUPROFEN 600 MG TAB PO PRN (17:13)
[2019-09-24] MEDS ORDERED: MORPHINE SULFATE PCA 30 MG/30 ML IV PRN (17:13)
[2019-09-24] MEDS ORDERED: ACETAMINOPHEN 325 MG TAB PO PRN (17:13)
[2019-09-24] MEDS ORDERED: NALOXONE HCL 0.4 MG/1 ML VIAL/CARP IV PRN (17:13)
--- NOTE | 2019-09-24 17:13 | Post Operative Brief Note ---
PG Immediate Post Op with CF Date of Surgery September 24, 2019 Pre & Post Diagnosis Operation Date: 09/24/19 10:25 Pre-Op Diagnosis: Postmenopausal Bleeding, Polyp with Simple Hyperplasia Post-Op Diagnosis: Postmenopausal Bleeding, Polyp with Simple Hyperplasia I identified the patient and participated in the time-out.: Yes Procedure Operation Date: 09/24/19 10:25 Actual Procedures p Robotic Total Laparoscopic Hysterectomy converted to Total Abdominal Open Hysterectomy with Bilateral Salpingo-oopherectomy, Cystoscopy(Not Applicable) - Tanika Roach MD, FACOG Surgeon Tanika Roach MD, FACOG College Counselor Daniela Estimated Blood Loss 200 Findings Consistent with Post-Op Diagnosis (uterus with dense adhesions of bladder to anterior DIMITRI, omental adhesions to anterior abdominal wall, normal ovaries and tubes bilaterally, cystoscopy with normal bladder filling and normal ureteral jets. ) Fluids 2000 Specimens Specimen Description: Permanent specimen: A. uterus, cervix, bilateral tubes and ovaries Drains Barros Catheter (18 fr barros catheter inserted by Dr. Roach, orange colored urine for return due to pyridium) Anesthesia Type General Complications none Disposition Accompanied Patient To Recovery: No Disposition: Recovery Room
[2019-09-24] MEDS ORDERED: SODIUM CHLORIDE 0.9% 1000ML 1,000 ML IV SCH (17:15)
[2019-09-24] MEDS ORDERED: KETOROLAC TROMETHAMINE 15 MG/ML VIAL IV PRN (17:27)
--- NOTE | 2019-09-24 18:11 | Operative Report ---
PG Post Operative Report Pre & Post Diagnosis Operation Date: 09/24/19 10:25 Pre-Op Diagnosis: Postmenopausal Bleeding, Polyp with Simple Hyperplasia, Morbid obesity Post-Op Diagnosis: Postmenopausal Bleeding, Enlarged uterus with large anterior fibroid, Polyp with Simple Hyperplasia, Morbid obesity, Dense pelvic adhesions I identified the patient and participated in the time-out.: Yes Procedure Operation Date: 09/24/19 10:25 Actual Procedures 1. Attempted Robotic Total Laparoscopic Hysterectomy--aborted 2. Total abdominal hysterectomy with Bilateral Salpingo-oopherectomy 3. Cystoscopy Surgeon Tanika Roach MD, F[employer] Daniela Estimated Blood Loss 200 Findings See Below Uterus enlarged with large 5 cm anterior lower uterine segment fibroid. Poor mobilization within the pelvis. Adhesions of the omentum to the anterior abdominal wall. Adhesions of the bladder to the lower uterine segment that are dense. Normal ovaries and tubes bilaterally. Liver edge not seen due to obscu ring fat. Cystoscopy findings with normal bladder filling and normal ureteral jets. Fluids 2000cc Specimens Uterus, cervix, bilateral fallopian tubes and ovaries Drains Bean catheter Anesthesia Type General Complications none Disposition Accompanied Patient To Recovery: No Disposition: Recovery Room Indications 69-year-old with a history of persistent postmenopausal bleeding for planned hysterectomy and bilateral salpingo-oophorectomy. I have known this patient for many years. Severeal years ago she did have an endometrial polyp that was removed due to its finding after an episode of postmenopausal bleeding. That recurred in the fall 2018 and she was again taken to the operating room where a polyp was removed but this time there was concern raised for simple hyperplasia. Due to her morbid obesity and age it was recommended that she perform medical curettage to ensure that no residual hyperplasia would exist. Unfortunately after the first course of the progesterone hormone she bled excessively. She refused further medical management. A concern was raised to her in regards to why at 67 she was still having that amount of bleeding with progesterone withdrawal as well as the background history of hyperplasia. She desired definitive surgical management. She desired removal of her ovaries. Description of Procedure The patient was taken to the operating room and identified. After adequate general anesthesia was obtained she was placed in the dorsolithotomy position and prepped and draped in the usual sterile fashion. Attention was turned to the patient's vagina where a weighted speculum was placed. A long weighted speculum was required to even see her cervix. An anterior retractor was placed to visualize the cervix and it was grasped on its anterior lip with a tenaculum. A single interrupted suture of 0 Vicryl was placed at the 3 o'clock position. The cervix was sequentially dilated using Hegar dilators and sounded to 7 cm. The V care uterine manipulator was gently placed in the cervical os into the uterine cavity and the balloon was inflated. The suture material was tied down to the V care cup and the cup was stabilized. The vaginal instruments were removed. Prior to placing the instruments a Bean catheter had been placed under sterile conditions. Attention was then turned to the patient's abdomen where a supraumbilical skin incision was made with a scalpel. The verees needle was placed intraperitoneally with an opening pressure of 4 mmHg and a CO2 pneumoperitoneum was created. The 12 mm optical trocar was placed into the peritoneal cavity under direct visualization. The patient was placed in steep Trendelenburg. Adhesions were noted of the omentum to the anterior abdominal wall. The uterus was attempted to be manipulated but this was difficult. Two da Flynn trocar sites left and right of the midline were created by first creating skin incisions and then placing under direct visualization da Flynn trocars. A left upper quadrant patient assist port of 11 mm size was also placed as it was evident that some manipulation from above using a laparoscopic tenaculum might be necessary. The bowel was attempted to be teased away from the planned operative sites but this was also difficult. The laparoscope and camera were then removed from the abdomen and the robot was brought to the patient's bedside. The appropriate instruments were connected to the ap propriate trocars. Due to the omental adhesions which were obscuring the view some were taken down first with a straight scissor and then once the monopolar chuy and bipolar cautery were placed under direct visualization into the abdomen with the da Flynn camera in place they were taken down sharply and bluntly. This cleared a view to the uterus. Once again the uterus was attempted to be manipulated. During this process a perforation site of the vcare device was noted and it was evident that the uterus was not being manipulated at the fundus at all. For this reason using a laparoscopic tenaculum brought through the patient assist port the fundus was grasped. The right fallopian tube and ovary were identified. The ureter on that side was seen coursing well below the planned operative site. There was a large anterior fibroid of the lower uterine segment obscuring bladder adhesions. The infundibulopelvic pelvic ligament was then cauterized. This was on the right side it was also transected using monopolar chuy. The round ligament was elevated cauterized and transected. The broad ligament attachments between the sites were also cauterized and transected. The right lateral aspect of the uterus was then better visualized however dense adhesions were noted. There was continued bleeding presumably from the perforation site that was unable to be managed with cautery or placement of clips, it was not brisk. The decision was made to proceed with the hysterectomy from the left side. At this point the decision was made to leave the ovary in place on the left side so that would allow for better better visualization and the utero-ovarian ligament broad ligament attachments were taken down sequentially using cautery and then scissors. The round ligament was attempted to be elevated however this was also difficult due to lack of adequate uterine manipulation. Even with replacement of the tenaculum this was not effective. For that reason an additional trocar site was created to allow for an extra instrument arm to be placed in the abdomen. This allowed a pro-grasp to be used which was able to stabliize the uterus from side to side however the anterior dense adhesions that were below the level of a large protuberant anterior fibroid continue to be difficult to visualize. There continued to be oozing from the prior perforation. An attempt was made to advance the vcare manipulator while visualizing laparoscopically and this was also unsuccessful. It was at this point that for safety and lack of visualization of the bladder flap and bladder due to dense adhesions the decision was made to proceed with an open hysterectomy. The patient remained in lithotomy position after the robot was undocked and moved away from the patient bedside. The trocars were removed and the incision sites were closed. First the larger sites were closed with interrupted 0-vicryl sutures at fascia and then all closed in subcuticular fashion with 4-0 vicry.Knife was then used to create a vertical skin incision that was carried down to the underlying layer of fascia. The fascia was opened in the midline. The peritoneum was grasped and elevated with 2 hemostats and entered into sharply using Metzenbaum scissors. With care not to injure the bladder this opening was extended superiorly and inferiorly. The O'Hari- O'Carlos retractor was placed. The bladder blade was placed. The bowel was packed away from the planned operative field and a bowel retractor was placed. The uterus was grasped on its bilateral cornu with long Dianna clamps. The bladder flap was both sharply and bluntly created by gradually taking down the dense anterior adhesions to the lower uterine segment. This cleared the anterior lower uterine segment completely. Using Zeppelin clamps the uterine artery pedicles were grasped, transected and suture ligated on each side. Additional cardinal ligament attachments were taken down using straight clamps followed by transection and suture ligation on each side. The cervix was quite long. It took some time to come along the cervix completely and when able, curved clamps were placed coming beneath the cervix on each side. The specimen was completely transected. The pedicle within the curved clamps on each side were suture transfixed using 0 Vicryl and tagged. The cuff was then closed with interrupted sutures in the midline. The pelvis was inspected and was irrigated. No bleeding sites were noted. Attention was returned to the left where the tube and ovary were elevated and the infundibulopelvic ligament was identified. A zepplin clamp was placed across this pedicle directly beneath the left ovary. The ovary and tube were completely transected and sent as specimen. This pedicle was both free tied and suture ligated with 0 Vicryl. Hemostasis was adequate. Attention was returned to the vaginal cuff and no significant bleeding was noted. Surgicel was placed across the cuff. The tagged sutures were then cut. The other operative site on the right was reinspected and hemostatic. At this point the retractors were removed. All of the packing was removed. The fascia was closed in a running fashion in a modified Smead Holland style using #1 PDS suture. This was accomplished with 2 sutures of this material. The subcutaneous fat was copiously irrigated. Any bleeding sites were cauterized. The subcutaneous tissue was reapproximated using 2-0 chromic. The skin was then closed in a subcuticular fashion using 4-0 Vicryl however did require placement of some karlene as well. At this point attention was turned to the patient's vagina where the Bean catheter was removed from the bladder and a cystoscopy took place. The findings were as noted above. A new Bean catheter was then placed under sterile conditions. The patient was then returned to the supine position and awoken from anesthesia. She was transported to the recovery room in stable condition. All sponge lap needle counts were correct x2. I attest to the content of the Intraoperative Record and any orders documented therein. Any exceptions are noted below. EFFICIENCY ANALYST Major Procedure Codes Hysterectomy 84530 SARAH w/or w/out tube(s) &/or ovary(s) (Dr Suarez asst) Miscellaneous 19638 Cystoscopy
[2019-09-24] MEDS ORDERED: MEPERIDINE HCL 25 MG/ML CARP/VIAL IV PRN (18:21)
[2019-09-24] MEDS ORDERED: fentaNYL citrate 100 MCG/2 ML VIAL IV PRN (18:21)
[2019-09-24] MEDS ORDERED: HYDROmorphone INJ 1 MG/ML SYRINGE IV PRN (18:21)
[2019-09-24] MEDS ORDERED: PHENYLEPHRINE 100MCG/ML 5ML SYR IV PRN (18:21)
[2019-09-24] MEDS ORDERED: LABETALOL HCL IV 5 MG/ML 20ML IV PRN (18:21)
[2019-09-24] MEDS ORDERED: ePHEDrine sulfate 50 MG/ML AMP IV PRN (18:21)
[2019-09-24] MEDS ORDERED: ATROPINE SULFATE 0.1 MG/ML 10ML SYR IV PRN (18:21)
--- NOTE | 2019-09-24 19:04 | Anesthesiology Progress Note ---
Date of Service September 24, 2019 Anesthesia Post Procedure Vital Signs Vital Signs: Temp Pulse Pulse Resp BP Pulse Ox 09/24/19 19:00 95 H 20 153/79 H 97 09/24/19 18:45 82 16 141/87 H 95 09/24/19 18:35 93 H 13 130/87 93 09/24/19 18:25 36.5 C 80 20 135/84 94 09/24/19 18:15 85 12 144/73 H 91 09/24/19 18:05 95 H 22 132/81 96 09/24/19 17:55 91 H 21 140/81 92 09/24/19 17:45 91 H 24 137/78 92 09/24/19 17:37 36.4 C L 90 20 138/77 92 09/24/19 09:14 36.9 C 86 20 184/95 H 98 Transfer of Care Handoff Completed per policy Notes Mental Status: alert / awake / arousable and participated in evaluation Patient Amnestic to Procedure: Yes Nausea / Vomiting: adequately controlled Pain: adequately controlled Airway Patency, RR, SpO2: stable & adequate BP & HR: stable & adequate Hydration State: stable & adequate Anesthetic Complications: no major complications apparent and Pt Satisfied with anesthetic care
[2019-09-24] MEDS: LACTATED RINGER'S 1,000 ML IV SCH (19:48)
[2019-09-24] MEDS ORDERED: MoRPHine SULFATE 2 MG/ML CARP IV STA (20:24)
[2019-09-24] MEDS: DOCUSATE SODIUM 100 MG CAP PO SCH (21:14)
[2019-09-24] MEDS ORDERED: ALPRAZolam 0.25 MG TABLET PO PRN (21:26)
[2019-09-25] MEDS ORDERED: FAMOTIDINE 20 MG TAB PO STA (04:07)
[2019-09-25] MEDS: CALCIUM CARBONATE 500 MG CHEWABLE TAB PO PRN ×2 (04:25→19:21)
[2019-09-25] MEDS: LACTATED RINGER'S 1,000 ML IV SCH (04:39)
[2019-09-25 08:24] LABS: Hematocrit (blood only) 39.1 % (37-47); Hemoglobin 12.8 g/dL (12.0-16.0); Immature Granulocytes # (auto) 0.03 K/uL (0.00-0.02); Immature Granulocytes % (auto) 0.3 %; Lymphocytes # (auto) 1.44 K/uL (1.2-3.4); Lymphocytes % (auto) 12.3 %; Mean Corpuscular Hemoglobin 30.4 pg (25-34); Mean Corpuscular Hgb Conc 32.7 g/dL (32-36); Mean Corpuscular Volume 92.9 fL (80-100); Mean Platelet Volume 9.3 fL (7.4-10.4); Monocytes # (auto) 1.19 K/uL (0.11-0.59); Monocytes % (auto) 10.2 %; Neutrophils # (auto) 9.03 K/uL (1.4-6.5); Neutrophils % (auto) 77.2 %; Platelet Count 253 K/uL (130-400); RDW Coefficient of Variation 14.3 % (11.5-14.5); RDW Standard Deviation 48.9 fL (36.4-46.3); Red Blood Count 4.21 M/uL (4.2-5.4); White Blood Count 11.69 K/uL (4.8-10.8)
[2019-09-25] MEDS: PANTOprazole 40 MG TAB PO SCH (12:05)
[2019-09-25] MEDS: DOCUSATE SODIUM 100 MG CAP PO SCH ×2 (12:06→21:18)
[2019-09-25] MEDS: ATENOLOL 50 MG TABLET PO SCH (12:06)
[2019-09-25] MEDS ORDERED: OXYCODONE HCL IR 5 MG TAB (IMMEDIATE RELEASE) PO PRN (12:13)
--- NOTE | 2019-09-25 12:19 | Gynecologic Progress Note ---
Date of Service September 25, 2019 Assessment & Plan (1) History of postmenopausal bleeding: (2) Abnormal histological finding in specimen from female genital organ: (3) Hyperplasia of endometrium determined by biopsy: will advance diet and get pt moving. enc incentive spirometry. cbc noted. pt aware of surgery findings and pathology pending. routine care Admission and Anticipated Discharge Date Admission Date: September 24, 2019 Subjective pt doing well. denies n/v/cp/sob. denies flatus. no pain issues, just feels sore. 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 aware of events at [facility] and reason to convert to open procedure. she feels hot, but they have adjusted the temp in room. she does not feel hungry and throat is sore. she is drinking and had clears this am with no issues. she is ready to walk around. Review of Systems Review of Systems: per hpi Physical Exam Constitutional: WD/WN, vitals as above Gastrointestinal (Abdomen): Inspection/Auscultation: abdomen normal to inspection (obese), normal bowel sounds, + abdominal wall ecchymosis (related to retractors and incision sites) and + abdominal surgical incision (multiple, reaaprox c/d/i, karlene noted. ) Percussion/Palpation: abdomen soft (obese); abdomen nontender Neurologic: grossly normal Psychiatric: A+Ox3, euthymic affect Genitourinary: apparently nurse was unsure if balloon of barros adequately deflated. barros tubing cut, no drainage and easily removed, balloon was notably deflated at removal. Results & Data ([facility]) Vital Signs (Past 12 Hours) Vital Signs Temp Pulse Resp BP Pulse Ox 09/25/19 10:25 96 09/25/19 07:25 96 09/25/19 05:15 97.5 F L 102 H 18 113/68 95 09/25/19 02:00 88 L 09/25/19 01:00 94 PG Care Time/CCT Total # of Minutes Spent Total Time Spent with Patient: Total time spent is greater than 50% in coordination of care (as documented) at patient's floor/unit and/or counseling patient: Coding Level of Care Code None Diagnoses History of postmenopausal bleeding Z87.42 Abnormal histological finding in specimen from female genital organ R87.7 Hyperplasia of endometrium determined by biopsy N85.00
[2019-09-25] MEDS: SIMETHICONE 80 MG CHEW PO PRN (15:48)
[2019-09-25] MEDS ORDERED: PRAVASTATIN SOD 40 MG TAB PO SCH (21:00)
[2019-09-25] MEDS ORDERED: FAMOTIDINE 20 MG TAB PO SCH (21:00)
[2019-09-25] MEDS: ACETAMINOPHEN 500 MG TAB PO PRN (21:53)
[2019-09-26] MEDS ORDERED: COUGH DROP (SUGAR FREE) LOZ 24 LOZ/1 BOX BUCCAL ONE (00:53)
[2019-09-26] MEDS: ACETAMINOPHEN 500 MG TAB PO PRN (05:47)
[2019-09-26] MEDS: ATENOLOL 50 MG TABLET PO SCH (07:39)
[2019-09-26] MEDS: PANTOprazole 40 MG TAB PO SCH (07:39)
[2019-09-26] MEDS: DOCUSATE SODIUM 100 MG CAP PO SCH (07:39)
[2019-09-26] MEDS: SIMETHICONE 80 MG CHEW PO PRN (07:40)
--- NOTE | 2019-09-26 09:29 | Gynecologic Progress Note ---
Date of Service September 26, 2019 Assessment & Plan (1) History of postmenopausal bleeding: (2) Abnormal histological finding in specimen from female genital organ: (3) Hyperplasia of endometrium determined by biopsy: (4) Post-operative state: doing well, ready to go home, instructions reviewed. will call her for planned f/u on friday to remove karlene, she is aware i have to check with office re: time. declines any scripts for pain. Admission and Anticipated Discharge Date Admission Date: September 24, 2019 Subjective doing well. ready to go home. eating, +Flatus (9x she said), no cp/sob, voiding well, walking in halls. pain controlled with tylenol Review of Systems Review of Systems: per hpi Physical Exam Constitutional: WD/WN, vitals as above Respiratory: normal respiratory effort, lungs clear to auscultation Cardiovascular: Rate/Rhythm: regular rate and regular rhythm Gastrointestinal (Abdomen): Inspection/Auscultation: normal bowel sounds and + abdominal surgical incision (multiple, healing well) Percussion/Palpation: abdomen soft; abdomen nontender Musculoskeletal: nt calves Skin: some skin rxn to tape on her abdomen Neurologic: grossly normal Psychiatric: A+Ox3, euthymic affect Results & Data ([facility]) Vital Signs (Past 12 Hours) Vital Signs Temp Pulse Resp BP Pulse Ox 09/26/19 07:35 98.8 F 95 H 18 149/85 H 94 09/26/19 00:20 154/75 H 09/25/19 23:15 98.8 F 89 20 161/89 H 95 PG Care Time/CCT Total # of Minutes Spent Total Time Spent with Patient: Total time spent is greater than 50% in coordination of care (as documented) at patient's floor/unit and/or counseling patient: Coding Level of Care Code None Diagnoses History of postmenopausal bleeding Z87.42 Abnormal histological finding in specimen from female genital organ R87.7 Hyperplasia of endometrium determined by biopsy N85.00 Post-operative state Z98.890
--- NOTE | 2019-09-26 22:27 | Discharge Summary ---
Date of Service Date of admission: September 24, 2019 Date of discharge: September 26, 2019 Admission HPI Per Admitting Provider Admission diagnoses: postmenopausal bleeding, morbid obesity, endometrial hyperplasia, declines medical management Discharge diagnoses: same, pelvic adhesions, fibroid uterus Discharge Data Procedures Performed Operation Date: 09/24/19 10:25 Actual Procedures p Robotic Total Laparoscopic Hysterectomy converted to Total Abdominal Open Hysterectomy with Bilateral Salpingo-oopherectomy, Cystoscopy(Not Applicable) - Tanika Roach MD, [facility] Course (1) History of postmenopausal bleeding: (2) Abnormal histological finding in specimen from female genital organ: (3) Hyperplasia of endometrium determined by biopsy: (4) Morbid obesity: The patient was admitted for the above stated procedures. See full h&p for details. Essentially had postmenopausal bleeding and D&C/HSC done in fall 2018 with simple hyperplasia in polyp, no atypia. Given her obesity, recommended to take courses of progesterone. After first course of progesterone, had heavy bleeding and refused more. Counseled about concerns regarding lining and concern that lining that thick after just had D&C such that had heavy bleeding. She wanted surgery. Delayed due to covid 19. Unfortunately due to scar tissue, uterine immobility and anterior fibroid, could not see well enough to comfortably dissect and develop bladder flap and therefore converted to laparotomy. SARAH/BSO and cystoscopy done. EBL 200cc. Postoperative course and recovery unremarkable. Patient stable to go home on postoperative day #2, eating, voiding, ambulating, passing flatus. She was only using tylenol for pain control, refused narcotics or advil. She was aware of instructions and need for followup staple removal on friday. Postoperative hemoglobin 12.8. Coding Level of Care Code None Diagnoses History of postmenopausal bleeding Z87.42 Abnormal histological finding in specimen from female genital organ R87.7 Hyperplasia of endometrium determined by biopsy N85.00 Morbid obesity E66.01
== END 2019-09-26 10:40 | disposition home or self-care (01) | DRG 742 ==
LOC: ASU 08:35 → 4N 17:13